=== PATIENT | female | born 1960 | race Hispanic/Latino ===

== ENCOUNTER 2023-04-23 13:54 | Observation (INO) | payer OTHER ==
[~2023-04-23] VITALS: Ht 165.1 cm; Wt 64.0 kg
[~2023-04-23 13:54] MED LIST: B-121000 MC2 PO; GLIPIZIDE5 MG PO; JARDIANCE25 MG PO; LISINOPRIL10 MG PO; METFORMIN HCL500 MG PO; VITAMIN D31 ML
[2023-04-23] MEDS ORDERED: SODIUM CHLORIDE 0.9% 1000ML 1,000 ML IV STA (14:28)
[2023-04-23] MEDS ORDERED: ASPIRIN 81 MG CHEW TAB PO ONE (14:28)
[2023-04-23 14:49] LABS: BASOPHILS # (AUTO) 0.1 (0.0-0.1); BASOPHILS % 0.9 % (0.0-1.0); EOSINOPHILS # (AUTO) 0.1 (0.0-0.4); EOSINOPHILS % 1.2 % (0.0-6.0); HEMOGLOBIN 12.7 g/dL (12.0-16.0); LYMPHOCYTES # (AUTO) 3.8 (1.0-3.2); LYMPHOCYTES % 41.8 % (18.0-39.1); MEAN CORPUSCULAR HEMOGLOBIN 25.5 pg (28-32); MEAN CORPUSCULAR HGB CONC 33.4 g/dL (31-35); MEAN CORPUSCULAR VOLUME 76.3 fL (81-99); MONOCYTES # (AUTO) 0.7 (0.2-0.8); MONOCYTES % 7.8 % (4.4-11.3); NEUTROPHILS # (AUTO) 4.3 (2.1-6.9); NEUTROPHILS % 48.1 % (38.7-80.0); PLATELET COUNT 345 x10e3/uL (140-360); RED BLOOD COUNT 4.98 x10e6/uL (3.6-5.1); RED CELL DISTRIBUTION WIDTH 14.7 % (11.7-14.4)
[2023-04-23 14:55] LABS: INR 0.87; PROTHROMBIN TIME 12.3 seconds (11.9-14.5)
[2023-04-23 14:56] LABS: PARTIAL THROMBOPLASTIN TIME 29.6 seconds (23.8-35.5)
[2023-04-23 15:01] LABS: CLARITY,URINE CLEAR (CLEAR); COLOR,URINE YELLOW (YELLOW); KETONES,URINE NEGATIVE (NEGATIVE); LEUKOCYTE ESTERASE ,URINE NEGATIVE (NEGATIVE); NITRITE,URINE NEGATIVE (NEGATIVE); PROTEIN,URINE DIPSTICK NEGATIVE (NEGATIVE); URINE UROBILINOGEN 0.2 mg/dL (0.2 - 1)
[2023-04-23 15:05] LABS: ALANINE AMINOTRANSFERASE 36 IU/L (0-55); ALBUMIN 3.5 g/dL (3.5-5.0); ALBUMIN/GLOBULIN RATIO 0.8 (0.8-2.0); ALKALINE PHOSPHATASE 155 IU/L (40-150); ANION GAP 14.5 mmol/L (8-16); BLOOD UREA NITROGEN 26 mg/dL (7-26); BUN/CREATININE RATIO 29 (6-25); CALCIUM 9.5 mg/dL (8.4-10.2); CARBON DIOXIDE 24 mmol/L (22-29); CHLORIDE 102 mmol/L (98-107); CREATINE KINASE 30 IU/L (29-168); CREATININE, SERUM 0.89 mg/dL (0.57-1.11); GLUCOSE 142 mg/dL (74-118); MAGNESIUM 2.1 MG/DL (1.3-2.1); POTASSIUM 4.5 mmol/L (3.5-5.1); SODIUM 136 mmol/L (136-145)
[2023-04-23 15:19] LABS: THYROID STIMULATING HORMONE 1.091 uIU/mL (0.350-4.940)
[2023-04-23 15:20] LABS: BACTERIA,URINE FEW /HPF; EPITHELIAL CELLS,URINE FEW /LPF; RBC,URINE 0-5 /HPF (0-5); WBC,URINE (MAN) 0-5 /HPF (0-5)
[2023-04-23] MEDS ORDERED: METOPROLOL TARTRATE 25 MG TAB PO ONE (15:30)
[2023-04-23] MEDS ORDERED: ONDANSETRON HCL INJ 2MG/ML 2ML 2 MG/ML VIAL IV PRN (17:30)
[2023-04-23] MEDS ORDERED: NITROGLYCERIN 0.4 MG SUBL SL PRN (17:30)
[2023-04-23] MEDS: FAMOTIDINE 20 MG/2 ML VIAL IV SCH (19:38)
[2023-04-23] MEDS ORDERED: LISINOPRIL-HCT1 EAC2 PO (19:51)
[2023-04-23] MEDS ORDERED: VITAMIN D325 MCG PO (19:51)
[2023-04-23 20:00] VITALS: BP 134/76; PULSE 92; RESP 19; TEMP 98.4; O2SAT 100
[2023-04-23 20:10] VITALS: BP 134/76; PULSE 92; RESP 19; TEMP 98.4; O2SAT 100
[2023-04-24] VITALS: BP 128/88; PULSE 86; RESP 17; TEMP 97.9; O2SAT 98
[2023-04-24 01:38] LABS: CREATINE KINASE 23 IU/L (29-168)
[2023-04-24 05:34] LABS: BASOPHILS # (AUTO) 0.1 (0.0-0.1); BASOPHILS % 0.9 % (0.0-1.0); EOSINOPHILS # (AUTO) 0.2 (0.0-0.4); EOSINOPHILS % 2.8 % (0.0-6.0); HEMATOCRIT 36.2 % (34.2-44.1); HEMOGLOBIN 11.6 g/dL (12.0-16.0); LYMPHOCYTES # (AUTO) 4.4 (1.0-3.2); LYMPHOCYTES % 52.2 % (18.0-39.1); MEAN CORPUSCULAR HEMOGLOBIN 25.4 pg (28-32); MEAN CORPUSCULAR VOLUME 79.2 fL (81-99); MONOCYTES # (AUTO) 0.7 (0.2-0.8); NEUTROPHILS % 35.9 % (38.7-80.0); PLATELET COUNT 316 x10e3/uL (140-360); RED BLOOD COUNT 4.57 x10e6/uL (3.6-5.1); RED CELL DISTRIBUTION WIDTH 14.6 % (11.7-14.4)
[2023-04-24 06:08] LABS: CREATINE KINASE 23 IU/L (29-168)
[2023-04-24 06:09] LABS: ANION GAP 14.2 mmol/L (8-16); CALCIUM 9.1 mg/dL (8.4-10.2); CREATININE, SERUM 0.69 mg/dL (0.57-1.11); POTASSIUM 4.2 mmol/L (3.5-5.1)
[2023-04-24 07:26] VITALS: BP 105/74; PULSE 84; RESP 18; TEMP 97.9; O2SAT 100
[2023-04-24] MEDS ORDERED: DOCUSATE SODIUM 100 MG CAP PO PRN (07:45)
[2023-04-24] MEDS ORDERED: DEXTROSE 50% SYRINGE 50 ML IV PRN (07:45)
[2023-04-24] MEDS ORDERED: ACETAMINOPHEN 325 MG TAB PO PRN (07:45)
[2023-04-24] MEDS ORDERED: MELATONIN 3 MG TAB PO PRN (07:45)
[2023-04-24] MEDS: METFORMIN HCL 500 MG TAB PO SCH ×4 (08:00→17:00)
[2023-04-24 08:30] VITALS: BP 128/88; PULSE 86; RESP 17; TEMP 97.9; O2SAT 98
[2023-04-24] MEDS: FAMOTIDINE 20 MG/2 ML VIAL IV SCH (08:42)
[2023-04-24] MEDS: LISINOPRIL 2.5 MG TAB PO SCH ×2 (08:44→09:00)
[2023-04-24] MEDS: LISINOPRIL 10 MG TAB PO SCH ×2 (08:44→09:00)
[2023-04-24] MEDS ORDERED: ASPIRIN 81 MG ENTERIC COATED PO SCH (09:00)
[2023-04-24] MEDS ORDERED: METOPROLOL TARTRATE 25 MG TAB PO SCH (09:00)
[2023-04-24] MEDS: INSULIN REGULAR, HUMAN 100 UNIT/1 ML SQ SCH ×2 (11:30→16:30)
[2023-04-24 12:00] VITALS: BP 127/87; PULSE 96; RESP 19; TEMP 98.3; O2SAT 98
[2023-04-24 13:41] LABS: CREATINE KINASE 19 IU/L (29-168)
[2023-04-24 16:00] VITALS: BP 116/93; PULSE 83; RESP 18; TEMP 98.1; O2SAT 99
[2023-04-24] MEDS ORDERED: ENOXAPARIN SOD INJ 40 MG/0.4 ML SYR SC SCH (17:00)
[2023-04-24] MEDS ORDERED: LIPITOR20 MG PO (18:13)
[2023-04-24] MEDS ORDERED: AMLODIPINE BESYL5 MG PO (18:13)
[2023-04-24] MEDS ORDERED: FAMOTIDINE20 MG PO (18:13)
[2023-04-24] MEDS ORDERED: ASPIRIN EC81 MG PO (18:13)
[2023-04-24] MEDS ORDERED: ATORVASTATIN 20 MG TAB PO SCH (21:00)
== END 2023-04-24 18:51 | disposition home or self-care (01) ==
LOC: ER 14:11 → ERHOLD 17:34 → MED/SURG 18:25
PROVIDERS: ADMIT Internal Medicine; ATTEND Internal Medicine
DX: F41.0 Panic disorder [episodic paroxysmal anxiety] (principal); R07.89 Other chest pain; R00.0 Tachycardia, unspecified; I10 Essential (primary) hypertension; E11.9 Type 2 diabetes mellitus without complications; Z79.84 Long term (current) use of oral hypoglycemic drugs; R20.0 Anesthesia of skin; R20.2 Paresthesia of skin; Z87.891 Personal history of nicotine dependence; Z20.822 Contact with and (suspected) exposure to COVID-19; Z79.899 Other long term (current) drug therapy
CPT/HCPCS: 36415 ×2; 70450; 71045; 80048; 80053; 80061; 81001; 82550 ×2; 82948 ×2; 83036; 83735; 83880; 84443; 84484 ×2; 85025 ×2; 85379; 85610; 85730; 87086; 93005; 93306; 99284; G0378 ×2; J7030; U0002; J1650